=== PATIENT | male | born 1980 | race Caucasian/White ===

== ENCOUNTER → 2021-08-26 | Outpatient (CLI) | payer OTHER ==
--- NOTE | 2021-08-27 09:24 | RAD ---
US HEAD/NECK SOFT TISSUE History: Salivary gland enlargement. Comparison: None. Technique: Multiple grayscale and color Doppler images of the neck were obtained. Findings: The right neck area of concern demonstrates a homogeneous palpable right submandibular glan d which appears similar to the left submandibular gland in echogenicity and echotexture. No hyperemia . A normal-appearing a right submandibular lymph node is identified. No mass or cyst is found. IMPRESSION: 1. Homogeneous right submandibular gland symmetric in echotexture with the left submandibular gland. No masses or cysts. Electronically signed by: Odilon Barker MD (08/27/2021 9:21 AM) [id number]
== END ==
LOC: US 15:12
PROVIDERS: ATTEND Otolaryngology
DX: K11.1 Hypertrophy of salivary gland (principal)
CPT/HCPCS: 76536